=== PATIENT | female | born 1960 | race Caucasian/White ===

== ENCOUNTER → 2024-05-28 08:12 | Outpatient (REF) | payer OTHER, SELFPAY | LOC: WDC 08:12 | DX: Z12.31 Encounter for screening mammogram for malignant neoplasm of breast (principal) | CPT/HCPCS: 77063; 77067 ==

== ENCOUNTER → 2024-06-16 12:25 | Outpatient (REF) | payer OTHER, SELFPAY | LOC: RAD 12:25 | PROVIDERS: ATTENDING PHYSICIAN Student in an Organized Health Care Education/Training Program | DX: M79.671 Pain in right foot (principal) | CPT/HCPCS: 73630 ==

== ENCOUNTER 2025-02-28 09:32 | Emergency (ER) | payer OTHER, SELFPAY ==
--- NOTE | 2025-02-28 11:37 | ED.GENMED ---
History of Present Illness
General
Chief Complaint: Musculo-Skeletal Complaint
Time Seen by Provider: 02/28/25 11:08
History of Present Illness
History of Present Illness:
64-year-old female presents the emergency department for evaluation of left ankle pain after an inversion injury sustained yesterday. She is able to bear weight with discomfort. She has orthopedic boot at home that she utilized for ambulatory
assistance. No knee pain
Past History
Past History
ED Past Medical History: None
ED Past Surgical History: None
Social History
Personal:
Living: with family
Review of Systems
Review of Systems
Allergies reviewed?: Yes
All Other Systems: ROS reviewed and negative except as documented in HPI and ROS
Phy Exam
Physical Exam
Physical Exam:
GEN: Well appearing, NAD, WDWN
HEENT: Oral mucosa moist, no scleral icterus
Cardiac: Regular rate
Lung: No respiratory distress, no tachypnea
MSK:Minor swelling and ecchymosis to the left lateral malleolus, no bony tenderness, no tenderness at the base of the fifth metatarsal
Skin: Good color, no pallor or jaundice, no rashes
Neuro: AO x3, moves all extremities freely
Psych: Calm, cooperative
Course
Orders/Labs/Results
Orders:
Orders
02/28/25 09:40
CR Ankle - Left Min 3 Views Urgent
Comment:
Reason For Exam: fall
Vital Signs
Initial and Last Documented VS:
Initial Vital Signs
Temp Pulse Resp Pulse Ox
98.2 F 66 18 100
02/28/25 09:36 02/28/25 09:36 02/28/25 09:36 02/28/25 09:36
Last Documented Vital Signs
Temp Pulse Resp Pulse Ox
98.2 F 66 18 100
02/28/25 09:36 02/28/25 09:36 02/28/25 09:36 02/28/25 11:40
MDM/Problems Addressed
MDM/Problems Addressed:
X-rays independently interpreted by me are unremarkable for acute fracture. Discussed supportive care
*Pulse Oximetry
SaO2: 100
Oxygen Mode of Delivery: Room air
Patient hypoxic: no
*Critical Care Note
Total Time (30-74mins, 75-104mins- exclusive of procedures): Not Applicable
ED Attending Note
-
Portions of this chart may have been created with voice recognition software.� Occasional wrong word or��sound alike� substitutions may have occurred due to the inherent limitations of voice recognition software.
Discharge Plan
Departure
Patient Disposition: Home (Routine Discharge)
Date of Disposition: 02/28/25
Time of Disposition: 11:39
Patient with high blood pressure during this ER visit?: No
Discharge Problem:
Left ankle sprain
Instructions: Ankle sprain - ED discharge instructions
Referrals:
Chai Baker MD [Family Provider, Family Practice]
Activity Restrictions/Additional Instructions:
Use the boot for 1 to 2 weeks as needed to help with ambulation and then transition to a lace up brace if desired. Ice and take 400 to 600 mg of ibuprofen every 6-8 hours for pain control
Interventions
Interventions:
*Risk Screen - Suicide Last Done: 02/28/25 09:36
*General Assessment Last Done: 02/28/25 09:36
*Neglect/Abuse Screening Last Done: 02/28/25 11:47
*ED COVID-19 Vaccine History Last Done: 02/28/25 09:36
*Nursing Disposition Last Done: 02/28/25 11:47
ED-Musculoskeletal Assessment Last Done: 02/28/25 11:46
Discharge Date and Time
Discharge Date/Time: 02/28/25 11:47
Print Language: PERSIAN
== END 2025-02-28 11:47 | disposition home or self-care (01) ==
LOC: EMR 09:32
PROVIDERS: EMERGENCY PHYSICIAN Emergency Medicine; FAMILY PHYSICIAN Student in an Organized Health Care Education/Training Program
DX: S93.402A Sprain of unspecified ligament of left ankle, initial encounter (principal); X58.XXXA Exposure to other specified factors, initial encounter
CPT/HCPCS: 99283; 73610

== ENCOUNTER → 2025-07-21 12:41 | Outpatient (REF) | payer OTHER, SELFPAY | LOC: RAD 12:41 | PROVIDERS: ATTENDING PHYSICIAN Student in an Organized Health Care Education/Training Program | DX: M85.89 Other specified disorders of bone density and structure, multiple sites (principal) | CPT/HCPCS: 77080 ==